=== PATIENT | male | born 1980 | race Caucasian/White ===

== ENCOUNTER 2018-04-24 16:44 | Emergency (ER) | payer MEDICAID ==
[2018-04-24] MEDS: METHYLPREDNISOLONE 125 MG INJ IM (19:23)
[2018-04-24] MEDS: KETOROLAC 60 MG INJ IM (19:23)
[2018-04-24] MEDS: HYDROCODONE/APAP (5/325) TAB PO (19:24)
[2018-04-24] MEDS: DIAZEPAM 2 MG TAB PO (19:41)
== END 2018-04-24 20:16 | disposition home or self-care (01) ==
LOC: FTE 16:44
DX: M54.41 Lumbago with sciatica, right side (principal)
CPT/HCPCS: 96372; 99284-25